=== PATIENT | male | born 1990 | race African-American/Black ===

== ENCOUNTER 2019-11-21 19:13 | Emergency (ER) | payer MEDICAID ==
[~2019-11-21] VITALS: Ht 172.7 cm; Wt 79.4 kg
--- NOTE | 2019-11-21 19:20 | NUR ---
PT BIB[employer]APD FROM STREET C/O SUICIDAL IDEATION WITH PLAN TO RUN INTO TRAFFIC. PT DENIES HI AT THIS TIME. PT AAOX4. APPEARS DISHEVELED. VITAL SIGNS STABLE. RESPIRATIONS EVEN AND UNLABORED. SKIN INTACT. AMBULATORY WITH STEADY GAIT. NO ACUTE DISTRESS NOTED AT THIS TIME. SITTER AT BEDSIDE. WILL CONTINUE TO MONITOR
--- NOTE | 2019-11-21 19:30 | NUR ---
SUICIDE PRECAUTIONS INITIATED. PT PLACED IN GOWN, BELONGINGS COLLECTED AND PLACED IN PATEINT LOCKER. SOH SECURITY AT BEDSIDE FOR WANDING. SITTER AT BEDSIDE
[2019-11-21 19:45] LABS: BASOPHILS % (AUTO) 0.3 % (0.0-2.0); HEMATOCRIT 41 % (39-51); HEMOGLOBIN 13.5 g/dL (13.5-17.5); LYMPHOCYTES # (AUTO) 2.5 /CMM (0.8-4.8); LYMPHOCYTES % (AUTO) 35.8 % (20.0-44.0); MEAN CORPUSCULAR HGB CONC 33 g/dl (31.0-36.0); MEAN CORPUSCULAR VOLUME 91 fL (80-96); MONOCYTES # (AUTO) 0.6 /CMM (0.1-1.30); MONOCYTES % (AUTO) 8.4 % (2.0-12.0); NEUTROPHILS # (AUTO) 3.8 /CMM (1.8-8.9); NEUTROPHILS % (AUTO) 54.5 % (43.0-81.0); PLATELET COUNT (AUTO) 316 /CMM (150-450); RED BLOOD CELL COUNT(AUTO) 4.51 MIL/uL (4.5-6.0)
--- NOTE | 2019-11-21 19:46 | NUR ---
JAIRO Unit 9X52 at bedside, Spoke with JAIRO Sams ([id number]). No information on pt being on [address] [facility].
[2019-11-21 19:59] LABS: CALCIUM, SERUM 8.8 mg/dL (8.5-10.1); CARBON DIOXIDE 32 mmol/L (21-32); CHLORIDE 102 mmol/L (98-107); GLUCOSE 85 mg/dL (74-106); POTASSIUM 4.1 mmol/L (3.5-5.1); SODIUM SERUM 141 mmol/L (136-145); UREA NITROGEN, BLOOD 15 mg/dL (7-18)
--- NOTE | 2019-11-21 20:02 | NUR ---
Denny cary in EDM - 11/21/19 at 2009 by SANGEETHA SUICIDE PRECAUTIONS INITIATED. PT PLACED IN GOWN, BELONGINGS COLLECTED AND PLACED IN PATEINT LOCKER. SOH SECURITY AT BEDSIDE FOR WANDING. SITTER AT BEDSIDE
[2019-11-21 20:12] LABS: APPEARANCE,URINE Clear (CLEAR); BILIRUBIN,URINE Negative (NEGATIVE); BLOOD, URINE Negative Ery/uL (NEGATIVE); COLOR,URINE Yellow (YELLOW); KETONES,URINE Negative (NEGATIVE); LEUKOCYTE ESTERASE ,URINE Negative (NEGATIVE); NITRITE, URINE Negative (NEGATIVE); PH,URINE 5.5 (5.0-8.0); PROTEIN,URINE Negative (NEGATIVE); UGLUCOSE Negative (NEGATIVE); UROBILINOGEN,URINE 0.2 EU/dL (0.2)
[2019-11-21 20:13] LABS: ALANINE AMINOTRANSFERASE 37 U/L (12-78); ALCOHOL, BLOOD < 3 mg/dL (0-0); ALKALINE PHOSPHATASE 72 U/L (46-116); ASPARTATE AMINOTRANSFERASE 26 U/L (15-37); BILIRUBIN,TOTAL 0.2 mg/dL (0.2-1.0); TOTAL PROTEIN, SERUM 7.5 g/dL (6.4-8.2)
[2019-11-21 20:15] LABS: SALICYLATE 1.8 mg/dL (2.8-20.0)
[2019-11-21 20:16] LABS: ACETAMINOPHEN < 5 ug/ml (10-30)
--- NOTE | 2019-11-21 21:58 | NUR ---
CLINICAL INFORMATION FAXED TO [facility]
--- NOTE | 2019-11-21 22:16 | NUR ---
Patient is resting comfortably in bed with eyes closed. Easily aroused. VSS.
--- NOTE | 2019-11-21 23:32 | NUR ---
PT ACCEPTED TO [facility] [address] ACCEPTING MD: DR. VINCENT NUMBER FOR REPORT: [phone] EXT [phone] UNIT: [id number]
[2019-11-21 23:49] VITALS: BP 129/71
--- NOTE | 2019-11-22 00:47 | NUR ---
PT TRANSFERED TO [facility].
--- NOTE | 2019-11-22 00:47 | NUR ---
REPORT GIVEN TO ARLETTE FROM [facility]
== END 2019-11-22 00:48 ==
LOC: ER 19:16
DX: R45.851 Suicidal ideations (principal); F20.0 Paranoid schizophrenia; F17.200 Nicotine dependence, unspecified, uncomplicated; F12.10 Cannabis abuse, uncomplicated; Z59.0 Homelessness
CPT/HCPCS: 36415; 80048; 80076; 80305; 80307; 80329; 81001; 85025; 99285; G0480; 81000-TC

== ENCOUNTER 2021-06-19 15:30 | Emergency (ER) | payer SELFPAY ==
[~2021-06-19] VITALS: Ht 180.3 cm; Wt 75.7 kg
--- NOTE | 2021-06-19 15:38 | NUR ---
[id number] FOR SI " JUMP INTO TRAFFIC ". PT AAOX3, VSS. RR EVEN & UNLABORED. DENIES CP, SOB, DIZZINESS, N/V AT THIS TIME. AWAITING EVAL BY LEVAR. CALM & COOPERATIVE, WILL CONT TO MONITOR.
[2021-06-19 16:02] LABS: BASOPHILS % (AUTO) 0.2 % (0.0-2.0); EOSINOPHILS % (AUTO) 0.5 % (0.0-6.0); HEMATOCRIT 45 % (39-51); MEAN CORPUSCULAR HGB CONC 33 g/dl (31.0-36.0); MEAN CORPUSCULAR VOLUME 90 fL (80-96); MONOCYTES # (AUTO) 0.9 K/uL (0.1-1.30); MONOCYTES % (AUTO) 11.8 % (2.0-12.0); NEUTROPHILS # (AUTO) 4.8 K/uL (1.8-8.9); NEUTROPHILS % (AUTO) 61.5 % (43.0-81.0); PLATELET COUNT (AUTO) 363 K/uL (150-450); RED BLOOD CELL COUNT(AUTO) 5.02 MIL/uL (4.5-6.0); WHITE BLOOD COUNT (AUTO) 7.8 K/uL (4.3-11.0)
[2021-06-19 16:08] LABS: BILIRUBIN,URINE NEGATIVE (NEGATIVE); COLOR,URINE YELLOW (YELLOW); LEUKOCYTE ESTERASE ,URINE NEGATIVE (NEGATIVE); NITRITE, URINE NEGATIVE (NEGATIVE); PH,URINE 6.5 (5.0-8.0); PROTEIN,URINE NEGATIVE (NEGATIVE); UGLUCOSE NEGATIVE (NEGATIVE); UROBILINOGEN,URINE 0.2 EU/dL (0.2)
[2021-06-19 16:10] LABS: CALCIUM, SERUM 8.9 mg/dL (8.5-10.1); CARBON DIOXIDE 27 mmol/L (21-32); CHLORIDE 101 mmol/L (98-107); CREATININE 0.9 mg/dL (0.6-1.3); GLUCOSE 96 mg/dL (74-106); POTASSIUM 3.8 mmol/L (3.5-5.1); SODIUM SERUM 138 mmol/L (136-145); UREA NITROGEN, BLOOD 13 mg/dL (7-18)
[2021-06-19 16:15] LABS: ALANINE AMINOTRANSFERASE 30 U/L (12-78); ALBUMIN 4.3 g/dL (3.4-5.0); ALKALINE PHOSPHATASE 80 U/L (46-116); ASPARTATE AMINOTRANSFERASE 39 U/L (15-37); BILIRUBIN,DIRECT 0.1 mg/dL (0.0-0.2); BILIRUBIN,TOTAL 0.5 mg/dL (0.2-1.0); TOTAL PROTEIN, SERUM 8.2 g/dL (6.4-8.2)
[2021-06-19 16:17] LABS: ACETAMINOPHEN < 10 ug/ml (10-30); ALCOHOL, BLOOD < 3 mg/dL (0-0)
--- NOTE | 2021-06-19 18:02 | NUR ---
FAXED CLINICALS AND FACESHEET TO [facility]
--- NOTE | 2021-06-19 21:22 | NUR ---
PER [facility] INTAKE PT IS ACCEPTED TO [facility] BUT AWAITING CONFIRMATION WITH ALVIN GOLD AND WILL CALL BACK WITH MORE INFO
--- NOTE | 2021-06-19 23:34 | NUR ---
PER ART WITH [facility] NO ACCEPTANCE INFO YET, WILL CALL BACK WITH UPDATES
--- NOTE | 2021-06-20 03:30 | NUR ---
PATIENT NOTED WITH NO ACUTE DISTRESS. PATIENT AMBULATED TO RESTROOM AND RETURNED TP BED. VSS.
--- NOTE | 2021-06-20 05:40 | NUR ---
PT ACCEPTED TO [facility]. GOING TO UNIT 1, UNDER DR. DYKES, DR. AMBROCIO. CALL FOR REPORT TO .
--- NOTE | 2021-06-20 05:45 | NUR ---
[facility] TRANSPORT [id number]
--- NOTE | 2021-06-20 05:46 | NUR ---
REPORT GIVEN TO [facility]
[2021-06-20 08:16] VITALS: BP 118/61
--- NOTE | 2021-06-20 08:28 | NUR ---
REPORT GIVEN TO EMS FOR PT TRANSFER TO [facility].
== END 2021-06-20 08:30 ==
LOC: EDBD → ER 15:37
DX: R45.851 Suicidal ideations (principal); F20.9 Schizophrenia, unspecified; Z59.0 Homelessness; F19.10 Other psychoactive substance abuse, uncomplicated; F15.10 Other stimulant abuse, uncomplicated; Z20.822 Contact with and (suspected) exposure to COVID-19; F17.200 Nicotine dependence, unspecified, uncomplicated
CPT/HCPCS: 36415; 80048; 80076; 80143; 80307; 80320; 81003; 85025; 87426; 99285; C9803; G0480

== ENCOUNTER 2021-06-23 11:39 | Emergency (ER) | payer MEDICAID, OTHER ==
[~2021-06-23] VITALS: Ht 180.3 cm; Wt 75.7 kg
--- NOTE | 2021-06-23 12:04 | NUR ---
KEDAR FROM [facility] CALLED,WANTS ALL LABS DONE FOR CLEARANCE AND WILL BE PRESENTED TO [facility] AFTER HE IS MEDICALLY CLEARED. DR COPELAND AWARE
[2021-06-23 12:35] LABS: BASOPHILS % (AUTO) 0.4 % (0.0-2.0); EOSINOPHILS % (AUTO) 0.8 % (0.0-6.0); HEMATOCRIT 43 % (39-51); HEMOGLOBIN 14.1 g/dL (13.5-17.5); LYMPHOCYTES # (AUTO) 1.5 K/uL (0.8-4.8); LYMPHOCYTES % (AUTO) 36.9 % (20.0-44.0); MEAN CORPUSCULAR HGB CONC 33 g/dl (31.0-36.0); MEAN CORPUSCULAR VOLUME 90 fL (80-96); MONOCYTES # (AUTO) 0.4 K/uL (0.1-1.30); MONOCYTES % (AUTO) 8.8 % (2.0-12.0); NEUTROPHILS # (AUTO) 2.1 K/uL (1.8-8.9); NEUTROPHILS % (AUTO) 53.1 % (43.0-81.0); PLATELET COUNT (AUTO) 271 K/uL (150-450); RED BLOOD CELL COUNT(AUTO) 4.78 MIL/uL (4.5-6.0)
[2021-06-23 12:37] LABS: BILIRUBIN,URINE Negative (NEGATIVE); COLOR,URINE LIGHT YELLOW (YELLOW); LEUKOCYTE ESTERASE ,URINE Negative (NEGATIVE); NITRITE, URINE Negative (NEGATIVE); PROTEIN,URINE Negative (NEGATIVE); UGLUCOSE Negative (NEGATIVE); UROBILINOGEN,URINE 0.2 EU/dL (0.2)
[2021-06-23 12:48] LABS: CALCIUM, SERUM 8.9 mg/dL (8.5-10.1); CARBON DIOXIDE 30 mmol/L (21-32); CHLORIDE 104 mmol/L (98-107); CREATININE 0.8 mg/dL (0.6-1.3); GLUCOSE 95 mg/dL (74-106); POTASSIUM 4.7 mmol/L (3.5-5.1); SODIUM SERUM 140 mmol/L (136-145); UREA NITROGEN, BLOOD 13 mg/dL (7-18)
[2021-06-23 13:05] LABS: ALANINE AMINOTRANSFERASE 32 U/L (12-78); ALBUMIN 3.8 g/dL (3.4-5.0); ALCOHOL, BLOOD < 3 mg/dL (0-0); ALKALINE PHOSPHATASE 64 U/L (46-116); ASPARTATE AMINOTRANSFERASE 25 U/L (15-37); BILIRUBIN,TOTAL 0.1 mg/dL (0.2-1.0); TOTAL PROTEIN, SERUM 7.4 g/dL (6.4-8.2)
[2021-06-23 13:06] LABS: ACETAMINOPHEN 0 ug/ml (10-30)
--- NOTE | 2021-06-23 22:22 | NUR ---
PT ON BED WATCHING TV NOT ON ANY DISTRESS, V/S CHECKED AND RECORDED
--- NOTE | 2021-06-24 00:11 | NUR ---
FACESHEET AND CLINICALS FAXED TO [facility].
--- NOTE | 2021-06-24 05:17 | NUR ---
pt comfortably sleeping on bed no sign of any distress will cont to monitor v/s checked and recorded
--- NOTE | 2021-06-24 08:00 | NUR ---
THE PATIENT IS RECEIVED IN ER BED #15. SLEEPING. EASILY RESPONSIVE TO VERBAL STIMULI. RESPIRATION REGULAR AND UNLABORED. WILL CONTINUE TO MONITOR THE PATIENT.
--- NOTE | 2021-06-24 09:25 | NUR ---
CALLED [facility] FOR UPDATE. NO BED AVAILABLE AT THIS TIME.
--- NOTE | 2021-06-24 10:02 | NUR ---
PT WANTS TO BE DISCHARGE STATES FEELING MUCH BETTER. DENIES SI/HI. DR NORTON AWARE. DISCHARGE IN STABLE CONDITION.
[2021-06-24 10:03] VITALS: BP 132/84
== END 2021-06-24 10:03 | disposition home or self-care (01) ==
LOC: ER 11:48
DX: R45.851 Suicidal ideations (principal); Z20.822 Contact with and (suspected) exposure to COVID-19; F17.200 Nicotine dependence, unspecified, uncomplicated; F20.9 Schizophrenia, unspecified
CPT/HCPCS: 36415; 80048; 80076; 80143; 80307; 80320; 81003; 85025; 87426; 99285; C9803; G0480

== ENCOUNTER 2021-06-24 11:29 | Emergency (ER) | payer OTHER ==
[~2021-06-24] VITALS: Ht 180.3 cm; Wt 76.2 kg
--- NOTE | 2021-06-24 11:36 | NUR ---
PT AISHA FROM THE STREETS C/O SUICIDAL IDEATION, +PLAN TO RUN INTO TRAFFIC. WAS MEDICALLY CLEARED AND DISCHARGE FROM [facility] TODAY S/P REQUESTED TO BE DISCHARGED. PT STATES HES SUICIDAL THOUGHTS CAME BACK 1 HOUR S/P DISCHARGED. STABLE VITALS. AWAITNG MD ROBERSON.
--- NOTE | 2021-06-24 12:00 | NUR ---
DR NORTON AT BEDSIDE FOR EVAL.
--- NOTE | 2021-06-24 12:10 | NUR ---
CALLED [facility] FOR TRANSPORT TO [facility]. ETA 60-75 MINUTES.
[2021-06-24 12:57] LABS: EOSINOPHILS % (AUTO) 0.7 % (0.0-6.0); MONOCYTES # (AUTO) 0.4 K/uL (0.1-1.30); NEUTROPHILS # (AUTO) 2.7 K/uL (1.8-8.9)
[2021-06-24 13:04] LABS: BASOPHILS % (AUTO) 0.9 % (0.0-2.0); HEMATOCRIT 46 % (39-51); HEMOGLOBIN 15.3 g/dL (13.5-17.5); LYMPHOCYTES # (AUTO) 1.3 K/uL (0.8-4.8); LYMPHOCYTES % (AUTO) 29.2 % (20.0-44.0); MEAN CORPUSCULAR HGB CONC 33 g/dl (31.0-36.0); MEAN CORPUSCULAR VOLUME 90 fL (80-96); MONOCYTES % (AUTO) 8.3 % (2.0-12.0); NEUTROPHILS % (AUTO) 60.9 % (43.0-81.0); PLATELET COUNT (AUTO) 297 K/uL (150-450); RED BLOOD CELL COUNT(AUTO) 5.08 MIL/uL (4.5-6.0); WHITE BLOOD COUNT (AUTO) 4.5 K/uL (4.3-11.0)
--- NOTE | 2021-06-24 13:12 | NUR ---
REPORT GIVEN TO [facility] UN[address].
--- NOTE | 2021-06-24 13:18 | NUR ---
THE PATIENT IS DISCHARGED TO [facility] IN STABLE CONDITION VIA ARRANGED TRANSPO.
[2021-06-24 13:19] VITALS: BP 137/84
[2021-06-24 13:30] LABS: CALCIUM, SERUM 8.6 mg/dL (8.5-10.1); CARBON DIOXIDE 32 mmol/L (21-32); CHLORIDE 101 mmol/L (98-107); CREATININE 0.9 mg/dL (0.6-1.3); GLUCOSE 105 mg/dL (74-106); POTASSIUM 4.6 mmol/L (3.5-5.1); SODIUM SERUM 138 mmol/L (136-145); UREA NITROGEN, BLOOD 11 mg/dL (7-18)
[2021-06-24 13:36] LABS: ALANINE AMINOTRANSFERASE 32 U/L (12-78); ALKALINE PHOSPHATASE 71 U/L (46-116); ASPARTATE AMINOTRANSFERASE 23 U/L (15-37); BILIRUBIN,DIRECT 0.1 mg/dL (0.0-0.2); BILIRUBIN,TOTAL 0.2 mg/dL (0.2-1.0)
[2021-06-24 13:39] LABS: ALCOHOL, BLOOD < 3 mg/dL (0-0)
[2021-06-24 14:29] LABS: BILIRUBIN,URINE NEGATIVE (NEGATIVE); COLOR,URINE OTHER (YELLOW); LEUKOCYTE ESTERASE ,URINE NEGATIVE (NEGATIVE); NITRITE, URINE NEGATIVE (NEGATIVE); PH,URINE 7.5 (5.0-8.0); PROTEIN,URINE NEGATIVE (NEGATIVE); UGLUCOSE NEGATIVE (NEGATIVE); UROBILINOGEN,URINE 0.2 EU/dL (0.2)
== END 2021-06-24 13:19 ==
LOC: ER 12:41
DX: R45.851 Suicidal ideations (principal); F20.9 Schizophrenia, unspecified; F32.9 Major depressive disorder, single episode, unspecified; F17.200 Nicotine dependence, unspecified, uncomplicated; Z60.2 Problems related to living alone
CPT/HCPCS: 36415; 80048-TC; 80076-TC; 85025-TC; G0480